=== PATIENT | female | born 1995 | race Caucasian/White ===

== ENCOUNTER → 2023-09-07 16:28 | Outpatient (REF) | payer BC, SELFPAY | LOC: PNTC 16:28 | PROVIDERS: ATTENDING PHYSICIAN Obstetrics & Gynecology | DX: Z36.0 Encounter for antenatal screening for chromosomal anomalies (principal) | CPT/HCPCS: 76801; 76813 ==

== ENCOUNTER 2024-03-12 00:14 | Inpatient (IN) | payer BC, SELFPAY ==
[2024-03-12 00:35] VITALS: BP 124/81; BMI 37.3
[2024-03-12 01:14] LABS: % Basophils 0.2 % (0-2); % Eosinophils 0.1 % (0-6); % Immature Granulocytes 0.3 % (0-0.5); % Lymphocytes 10.6 % (20.5-51.1); % Monocytes 4.2 % (1.7-9.3); % Neutrophils 84.6 % (42.2-75.2); Absolute Lymphocytes 1.5 10^3/uL (1.2-3.4); Absolute Monocytes 0.6 10^3/uL (0.1-0.6); Absolute Neutrophils 11.8 10^3/uL (1.4-6.5); Mean Corp Hgb Conc. 35.1 g/dL (33.0-37.0); Mean Corpuscular Hgb 30.1 pg (27.0-31.0); Mean Corpuscular Volume 85.6 fL (81.0-99.0); Mean Platelet Volume 10.3 fL (7.4-10.4); Nucleated Red Blood Cells % 0 %; Platelet Count 305 10^3/uL (130-400); Red Blood Cell Count 4.32 10^6/uL (4.20-5.40); Red Cell Dist. Width 13.5 % (11.5-14.5); White Blood Cell Count 13.9 10^3/uL (4.8-10.8)
[2024-03-12] MEDS: SUBLIMAZE 100 MCG EPIDURAL (04:05)
[2024-03-12] MEDS: FENTANYL/BUPIVACAINE 100 EPIDURAL (04:06)
[2024-03-12] MEDS: ANCEF 10 IV (04:55)
[2024-03-12] MEDS: BICITRA 30 ML PO (04:55)
[2024-03-12] MEDS: TYLENOL 1000 MG PO (04:55)
[2024-03-12 05:30] LABS: Cord ABG Comment CORD BLOOD
[2024-03-12 05:31] LABS: B.E. Cord ABG -0.8 mMOL/L; HCO3 Cord ABG 27.4 mmol/L; O2 Saturation % Cord ABG 9.6 %; PCO2 Cord ABG 57 mmHg; PO2 Cord ABG 10 mmHg; pH Cord ABG 7.29
[2024-03-12 05:39] LABS: B.E. Cord ABG -2.4 mMOL/L; HCO3 Cord ABG 23.2 mmol/L; O2 Saturation % Cord ABG 46.4 %; PCO2 Cord ABG 42 mmHg; PO2 Cord ABG 24 mmHg; pH Cord ABG 7.35
[2024-03-12] MEDS: PITOCIN 30 UNITS/NSS 500 ML IV (06:15)
[2024-03-12] MEDS: PRENATAL PLUS PO (08:02)
[2024-03-12] MEDS: TORADOL 15 MG IV ×3 (11:47→23:40)
[2024-03-13 05:43] LABS: Hematocrit 31.2 % (37.0-47.0); Mean Corp Hgb Conc. 35.3 g/dL (33.0-37.0); Mean Corpuscular Hgb 30.6 pg (27.0-31.0); Mean Corpuscular Volume 86.9 fL (81.0-99.0); Mean Platelet Volume 10.4 fL (7.4-10.4); Platelet Count 239 10^3/uL (130-400); Red Blood Cell Count 3.59 10^6/uL (4.20-5.40); Red Cell Dist. Width 13.7 % (11.5-14.5); White Blood Cell Count 11.9 10^3/uL (4.8-10.8)
[2024-03-13] MEDS: TORADOL 15 MG IV (05:46)
--- NOTE | 2024-03-13 07:50 | W.PN.ANS.POP ---
Anesthesia Post Operative
- Anesthesia Post Op Note
Vital Signs Stable-See Nursing Note: Yes
Airway Patent: Yes
Adequate Pain Control: Yes
Change in Mental Status: No
Current Postoperative Nausea & Vomiting: No
Anesthesia Complications: No
General Anesthetic Recall: No
Unplanned Admission: No
Post Op Hydration Adequate: Yes
- -
Pt awake and alert, resting comfortably with no anesthesia related c/o at time of post op visit.
[2024-03-13] MEDS: PRENATAL PLUS 1 TABLET PO (08:11)
[2024-03-13] MEDS: TYLENOL 650 MG PO ×2 (12:04→17:52)
[2024-03-13] MEDS: MOTRIN 600 MG PO ×2 (12:04→17:52)
[2024-03-14] MEDS: MOTRIN 600 MG PO ×4 (00:06→20:02)
[2024-03-14] MEDS: TYLENOL 650 MG PO ×3 (00:06→20:02)
[2024-03-14] MEDS: PRENATAL PLUS 1 TABLET PO (07:52)
[2024-03-14] MEDS: SENOKOT-S 1 TABLET PO (07:52)
[2024-03-14 12:35] LABS: Syphilis/T. pallidum Ab Reflex Negative (Negative)
[2024-03-15] MEDS: TYLENOL 650 MG PO ×2 (03:08→08:53)
[2024-03-15] MEDS: MOTRIN 600 MG PO ×2 (03:08→08:53)
--- NOTE | 2024-03-15 08:04 | W.DS.TRANS ---
DC Summary - Analytics Director
-
Discharge Instructions:
Discharge Diagnosis/Procedures delivered by csection
Diet Regular
Activity No strenuous activity
Driving Restrictions No driving for 2 weeks
Instructions:
Stand-Alone Forms: LDRP Delivery
Changes to Home Medications: No
Discharge Medications:
DC Medications w/original date entered in [email or web address]
budesonide 32 mcg/actuation nasal spray,aerosol 32 mcg intranasal DAILY Allergies 03/12/24
loratadine 10 mg tablet (Claritin) 10 mg PO DAILY Allergies 03/12/24
prenat.vits,jason,ajr-xmks-kelzc 1 tab PO DAILY Supplement 03/12/24
acetaminophen 325 mg tablet 650 mg (2 x 325 mg) PO Q4HPRN PRN mild pain #0 tabs 03/15/24
ibuprofen 600 mg tablet 600 mg PO Q6HPRN PRN cramps #0 tabs 03/15/24
Home Medication Changes
Pending Results: Yes
Additional Pending Results:
placental pathology
Total time spent discharging patient (in min): 25
[2024-03-15] MEDS: PRENATAL PLUS 1 TABLET PO (08:53)
[2024-03-15] MEDS: M-M-R II 0.5 ML SC (08:57)
== END 2024-03-15 11:19 | disposition home or self-care (01) | DRG 788 ==
LOC: LDRP 00:14
PROVIDERS: Obstetrics & Gynecology; ADMITTING PHYSICIAN Obstetrics & Gynecology
PROC: 10D00Z1 Extraction of Products of Conception, Low, Open Approach (ICD-10-PCS; 2024-03-12)
PROC: 4A1HXCZ Monitoring of Products of Conception, Cardiac Rate, External Approach (ICD-10-PCS; 2024-03-12)
PROC: 3E0134Z Introduction of Serum, Toxoid and Vaccine into Subcutaneous Tissue, Percutaneous Approach (ICD-10-PCS; 2024-03-15)
DX: O76 Abnormality in fetal heart rate and rhythm complicating labor and delivery (principal); O69.81X0 Labor and delivery complicated by cord around neck, without compression, not applicable or unspecified; O77.0 Labor and delivery complicated by meconium in amniotic fluid; O99.214 Obesity complicating childbirth; Z37.0 Single live birth; Z3A.39 39 weeks gestation of pregnancy; Z23 Encounter for immunization
CPT/HCPCS: 88307; 59025; 82803; 85025; 85027; 86780; 86850; 86900; 86901; 90707